=== PATIENT | male | born 1985 ===

== ENCOUNTER 2021-06-23 18:51 | Emergency (ER) | payer SELFPAY ==
[2021-06-23 18:57] VITALS: BP 130/96; PULSE 83; RESP 18; TEMP 37.1; O2SAT 98
--- NOTE | 2021-06-23 19:00 | DI.RAD_ITS ---
Exam(s) XR WRIST LT COMPLETE EXAM: XR WRIST LT COMPLETE CLINICAL HISTORY: Fall, R/O Fracture. TECHNIQUE: 2D digital imaging was performed. COMPARISON: No exams were available for comparison FINDINGS: There is no evidence of fracture or carpal dislocation. No significant ulnar variance. Scaphoid unr emarkable. Scapholunate distance is normal. Bone density normal. No osseous lesions. IMPRESSION: No significant radiographic findings. DATA REPOSITORY: RADIATION DOSE DELIVERED:
--- NOTE | 2021-06-23 19:09 | W.ED.GENAD ---
Discharge Plan Disposition Patient Disposition: HOME Condition: Stable Discharge Details Clinical Impression: Left wrist sprain Primary Care Provider: Unknown,Unknown ED Provider: Jacquelyn Aguila Home Meds and New Rx's Prescriptions: No Action No Known Home Meds RF: 0 Discharge Instructions Instructions: Wrist Sprain (ED) Additional Instructions: X-rays do not show any evidence for fracture at this time. Rest, ice, compression, elevation. Please take Tylenol or Ibuprofen with food every 4-6 hours as needed for pain and swelling. Follow up with primary care provider in 3-5 days. Return to ED sooner if any worsening or concerns. Increase oral fluids. Please follow-up with Ortho if continued pain in the next 1 to 2 weeks. Referrals: Dmitry Huynh MD [ [facility] STAFF PHYSICIAN] - 2 weeks Medical Decision Making 36-year-old male presents to the ER with left wrist pain status post slip and fall on the ice last night. Reports falling backwards with ischemic type injury. He had immediate swelling noted to the dorsum of his left wrist. No obvious deformity distal CMS is intact. He has no other complaints no back pain neck pain or loss of consciousness. He took ibuprofen this morning. X-ray ordered Tylenol 650 mg p.o. Imaging protocol: XR Left wrist. Views: 3 or more views. COMPARISON: No relevant prior studies available. FINDINGS: Bones/joints: Osseous mineralization is normal. There are no inflammatory osseous erosive changes. The joint spaces are maintained without degenerative changes. There are no acute displaced fractures or subluxations. No focal osseous lesions are identified. Soft tissues: There is no soft tissue swelling or soft tissue air. IMPRESSION: No acute displaced fractures or subluxations identified. Thank you for allowing us to participate in the care of your patient. Dictated and Authenticated by: Jovi Riggs MD Patient was placed in a universal wrist splint instructed on RICE procedures and follow-up care if needed. This text was generated using ezeepation system, please disregard any oddities of phrase or misspellings. HPI General Mode of arrival: ambulatory. Date/Time Provider Initiated Documentation: 06/23/21 18:52. Limitations to Documentation: no limitations. Information obtained by: patient and RN notes reviewed. HPI Narrative: 36-year-old male presents to the ER with left wrist pain status post slip and fall on the ice last night. Reports falling backwards with ischemic type injury. He had immediate swelling noted to the dorsum of his left wrist. No obvious deformity distal CMS is intact. He has no other complaints no back pain neck pain or loss of consciousness. He took ibuprofen this morning. Related Data Home Medications Medication Instructions Recorded Confirmed Unknown [No Known Home Meds] 06/23/21 06/23/21 Allergies Allergy/AdvReac Type Severity Reaction Status Date / Time No Known Allergies Allergy Unverified 06/23/21 19:00 General Stated Complaint: Orthopedic RACQUEL: 4 Review of Systems ENT Ears, Nose, Mouth, and Throat: Denies neck pain Musculoskeletal Musculoskeletal: Reports as per HPI, Denies back pain, Reports arthralgias and Denies neck pain PFSH All Active Problems (Updated 06/23/21 @ 20:07 by Jacquelyn Aguila) Left wrist sprain (Acute) Social History Smoking/Tobacco Use Status: Former Tobacco Use Smoking risk assessment performed?: Yes Alcohol Intake: never Drug use: Daily Substance use type: marijuana Do you feel safe at home: Yes Do you feel safe in your relationship?: Yes Exam Narrative Exam Narrative: Constitutional: Alert and oriented x3. Appears stated age. Normal body habitus. Head: Normocephalic, no trauma. Eyes: Pupils PERRL, Red reflex noted, EOM's intact. Eyelids symmetrical without lesions, discharge, or swelling. Chest: RRR, Normal S1, S2, distal pulses intact. Resp: Lungs clear to auscultation bilaterally, no wheezes, rales, or rhonchi. Musculoskeletal: Normal gait, 5/5 strength to all four extremities. Skin: No suspicious rashes or lesions. Capillary refill less than 2 sec. Neurologic: Cranial nerves II-XII intact. Alert and oriented x 3. Motor: No deficits noted. Sensory: Intact bilaterally all 4 extremities. Reflexes: DTR's intact bilaterally.. Extrem Left upper extremity: wrist Details: tenderness Location: of the dorsal wrist and swelling Location: of the dorsal wrist; no deformity Course Vital Signs Vital signs: Vital Signs Temperature 37.1 C 06/23/21 18:57 Pulse 83 06/23/21 18:57 Respiratory Rate 18 06/23/21 18:57 Blood Pressure 130/96 H 06/23/21 18:57 Pulse Oximetry 98 06/23/21 18:57 Temperature 37.1 C 06/23/21 18:57 Temperature Source Temporal Artery Scan 06/23/21 18:57 Pulse 83 06/23/21 18:57 Respiratory Rate 18 06/23/21 18:57 Respiratory Effort 06/23/21 19:01 Blood Pressure 130/96 H 06/23/21 18:57 Blood Pressure Position Sitting 06/23/21 18:57 Pulse Oximetry 98 06/23/21 18:57 Pain Level 5 06/23/21 18:57
[2021-06-23] MEDS: Acetaminophen 325 MG TAB 650 MG PO (19:31)
--- NOTE | 2021-06-23 19:43 | DI.VRAD_ITS ---
PROCEDURE INFORMATION: Exam: XR Left Wrist Exam date and time: 06/23/2021 7:03 PM Age: 36 years old Clinical indication: Other: Fall TECHNIQUE: Imaging protocol: XR Left wrist. Views: 3 or more views. COMPARISON: No relevant prior studies available. FINDINGS: Bones/joints: Osseous mineralization is normal. There are no inflammatory osseous erosive changes. The joint spaces are maintained without degenerative changes. There are no acute displaced fractures or subluxations. No focal osseous lesions are identified. Soft tissues: There is no soft tissue swelling or soft tissue air. IMPRESSION: No acute displaced fractures or subluxations identified. Dictated and Authenticated by: Jovi Riggs MD. Ordering:JEANNIE Valladares MD
[2021-06-23 20:12] VITALS: BP 132/78; PULSE 68; RESP 18; O2SAT 98
== END 2021-06-23 20:13 | disposition home or self-care (01) ==
PROVIDERS: Emergency Provider Registered Nurse Emergency
DX: S63.592A Other specified sprain of left wrist, initial encounter (principal); W00.0XXA Fall on same level due to ice and snow, initial encounter
CPT/HCPCS: 29125; 99283; 73110